=== PATIENT | female | born 1950 | race Caucasian/White ===

== ENCOUNTER → 2018-08-26 | Outpatient (CLI) | payer MEDICARE, OTHER ==
[~2018-08-26] MED LIST: ACIDOPHILUS1 EAC3 PO; BACTRIM DS TAB1 EACH PO; BENTYL20 MG PO; CALCIUM OR; CALCIUM OYSTER500 MG PO; FISHOIL OR; FISHOIL PO; FLAGYL500 MG PO; HORMONE REPLACEMENT; MULTIVITAMINS OR; MULTIVITAMINS PO; NEXIUM40 MG PO; PERCOCET 7.5-31 EACH PO; POTASSIUM20 OR; ULTRAM 50MG TAB50 MG PO; VICODIN 5-5001 EACH PO; VITAMIN B-12100 MC1 PO
== END ==
LOC: M.RAD 11:42
DX: M19.071 Primary osteoarthritis, right ankle and foot (principal)

== ENCOUNTER → 2019-05-21 | Outpatient (CLI) | payer MEDICARE, OTHER ==
[2019-05-21 10:06] LABS: ABSOLUTE BASOPHILS 0.1 thou/uL (0.0-0.2); ABSOLUTE EOSINOPHILS 0.1 thou/uL (0.0-0.7); ABSOLUTE MONOCYTES 0.7 thou/uL (0.0-1.2); ABSOLUTE NEUTROPHILS 5.1 thou/uL (1.6-8.1); BASOPHILS 0.8 %; EOSINOPHILS 1.1 %; HEMATOCRIT 46.5 % (37.0-47.0); HEMOGLOBIN 16.4 gm/dL (12.0-15.0); LYMPHOCYTES 24.7 %; MCH 33.7 pg (26.0-34.0); MCHC 35.3 g/dL (28.0-37.0); MCV 95.5 fL (80.0-100.0); MONOCYTES 8.8 %; MPV 7.8 fl. (7.2-11.1); NUCLEATED RBCS 0 /100WBC; PLATELET COUNT* 257 thou/uL (150-400); POLYS 64.6 %; RBC 4.88 mil/uL (4.20-5.00); WBC 7.9 thou/uL (4.0-11.0)
[2019-05-21 10:29] LABS: CALCIUM 9.9 mg/dL (8.5-10.1); POTASSIUM 4.6 mmol/L (3.5-5.1); TOTAL BILIRUBIN 0.4 mg/dL (<0.1-1.0); TOTAL PROTEIN 8.3 g/dL (6.4-8.2)
== END ==
LOC: M.LAB 09:42 → M.CT 11:00
PROVIDERS: Internal Medicine Gastroenterology
DX: K57.30 Diverticulosis of large intestine without perforation or abscess without bleeding (principal); K43.9 Ventral hernia without obstruction or gangrene; K76.89 Other specified diseases of liver